=== PATIENT | female | born 1990 | race Caucasian/White ===

== ENCOUNTER 2018-01-31 07:41 | Day surgery (SDC) | payer BC ==
[~2018-01-31 07:41] MED LIST: Sodium Chloride 0.9% 10 ML Syringe FLUSH PRN; Sodium Chloride 0.9% 2.5 ML Syringe FLUSH PRN
--- NOTE | 2018-01-31 08:43 | PCM.PREANE ---
Preanesthetic Assessment - Anesthesia/Transfusion/Family Hx Anesthesia History: Prior Anesthesia Without Reaction Family History of Anesthesia Reaction: No Transfusion History: No Prior Transfusion(s) Intubation History: Unknown - Review of Systems General: No Symptoms Pulmonary: No Symptoms Cardiovascular: No Symptoms Gastrointestinal: No Symptoms Neurological: No Symptoms Other: Reports: None - Physical Assessment O2 Sat by Pulse Oximetry: 98 Respiratory Rate: 16 Vital Signs: Last Vital Signs Temp 36.3 C 01/31/18 08:13 Pulse 88 01/31/18 08:13 Resp 16 01/31/18 08:13 BP 114/72 01/31/18 08:13 Pulse Ox 98 01/31/18 08:13 Height: 1.65 m Weight: 69.853 kg ASA Class: 2 Mental Status: Alert & Oriented x3 Airway Class: Mallampati = 1 Dentition: Reports: Normal Dentition Thyro-Mental Finger Breadths: 3 Mouth Opening Finger Breadths: 3 ROM/Head Extension: Full Lungs: Clear to Auscultation, Normal Respiratory Effort Cardiovascular: Regular Rate, Regular Rhythm - Lab Values: Laboratory Last Values WBC 6.33 K/uL (4.0-11.0) 01/31/18 08:34 RBC 4.36 M/uL (4.30-5.90) 01/31/18 08:34 Hgb 13.7 g/dL (12.0-16.0) 01/31/18 08:34 Hct 40.9 % (36.0-46.0) 01/31/18 08:34 MCV 93.8 fL (80.0-98.0) 01/31/18 08:34 MCH 31.4 pg (27.0-32.0) 01/31/18 08:34 MCHC 33.5 g/dL (31.0-37.0) 01/31/18 08:34 RDW Std Deviation 41.6 fl (28.0-62.0) 01/31/18 08:34 RDW Coeff of Michelle 12 % (11.0-15.0) 01/31/18 08:34 Plt Count 228 K/uL (150-400) 01/31/18 08:34 MPV 9.40 fL (7.40-12.00) 01/31/18 08:34 Nucleated RBC % 0.0 /100WBC 01/31/18 08:34 Nucleated RBCs # 0 K/uL 01/31/18 08:34 - Allergies Allergies/Adverse Reactions: Allergies Allergy/AdvReac Type Severity Reaction Status Date / Time No Known Allergies Allergy Verified 01/27/18 09:02 - Blood Blood Available: No - Anesthesia Plan Pre-Op Medication Ordered: None - Acknowledgements Anesthesia Type Planned: General Anesthesia Pt an Appropriate Candidate for the Planned Anesthesia: Yes Alternatives and Risks of Anesthesia Discussed w Pt/Guardian: Yes Pt/Guardian Understands and Agrees with Anesthesia Plan: Yes PreAnesthesia Questionnaire [employer] History: Reports: Other (See Below) Other OB/BYN History: Abnormal PAP smear Musculoskeletal History: Reports: RA - Past Surgical History Musculoskeletal Surgical History: Reports: Other (See Below) Other Musculoskeletal Surgeries/Procedures:: release of Trigger Finger left hand - SUBSTANCE USE Smoking Status *Q: Never Smoker Recreational Drug Use History: No - HOME MEDS Home Medications: Home Meds Ibuprofen 1 tab PO ASDIRECTED PRN 01/27/18 [History] Norgestimate-Ethinyl Estradiol [Owsley-Linyah 28 Tablet] 1 tab PO DAILY 01/27/18 [ History] sulfaSALAzine [Sulfazine] 2 tab PO ASDIRECTED 01/27/18 [History] - CURRENT (IN HOUSE) MEDS Current Meds: Current Medications Lactated Ringer's (Ringers, Lactated) 1,000 mls @ 125 mls/hr IV ASDIRECTED ESTEFANI Last Admin: 01/31/18 08:21 Dose: 125 mls/hr Sodium Chloride (Saline Flush) 10 ml FLUSH ASDIRECTED PRN PRN Reason: Keep Vein Open Sodium Chloride (Saline Flush) 2.5 ml FLUSH ASDIRECTED PRN PRN Reason: Keep Vein Open Discontinued Medications Lidocaine HCl (Xylocaine-Mpf 1%) Confirm Administered Dose 5 mls @ as directed .ROUTE .STK-MED ONE Stop: 01/31/18 08:04
[2018-01-31] MEDS ORDERED: Lactated Ringers 1,000 ML IV SCH (09:00)
[2018-01-31] MEDS ORDERED: fentaNYL 100 MCG/2 ML SDV ONE (09:03)
[2018-01-31] MEDS ORDERED: Propofol 200 MG/20 ML SDV ONE (09:03)
[2018-01-31] MEDS ORDERED: Midazolam 1 MG/ML 2 ML SDV ONE (09:03)
[2018-01-31] MEDS ORDERED: Lidocaine 1% with EPINEPHrine 1:100,000 20 ML MDV ONE (09:12)
[2018-01-31] MEDS ORDERED: Ketorolac 30 MG/ML SDV ONE (09:53)
--- NOTE | 2018-01-31 10:32 | PCM.OPNOTE ---
- General Post-Op/Procedure Note Date of Surgery/Procedure: 01/31/18 Operative Procedure(s): Loop electrosurgical excision procedure Findings: Ectocervix stained deeply with Lugol idodine. Pre Op Diagnosis: Moderate cervical dysplasia Post-Op Diagnosis: Same Anesthesia Technique: General LMA Primary Surgeon: Rachel Metz EBL in mLs: 3 Complications: None Condition: Good Free Text/Narrative:: Intake & Output 01/30/18 01/31/18 01/31/18 22:59 06:59 14:59 Intake Total 500 Balance 500
--- NOTE | 2018-02-01 08:06 | OR ---
SURGEON: Rachel Metz MD DATE OF PROCEDURE: 01/31/2018 CELLULOSE INSULATION HELPER: Dr. Hatfield. PREOPERATIVE DIAGNOSIS: Cervical dysplasia (MOY I and MOY II). POSTOPERATIVE DIAGNOSIS: Cervical dysplasia (MOY I and MOY II). OPERATIVE PROCEDURE: Cervical loop electrosurgical excision procedure, LEEP. ANESTHESIA: General LMA. ESTIMATED BLOOD LOSS: Minimal. COMPLICATIONS: None. BRIEF HISTORY: Eileen is a 27-year old who has had recurrent abnormal Pap smears. They have alternated between ASCUS and LGSIL. She has had at least 3 colposcopies within the last 3 years and the last colposcopy directed biopsies were consistent with moderate cervical dysplasia. These findings including management options were discussed with her and she accepted to go ahead with an operative procedure in the form of LEEP. The risks of the procedures were explained to her including but not limited to bleeding, infection, inability to excise the lesion completely, which might lead to further excision procedures, injury to adjacent structures. She was also counseled regarding the long-term risk of a possible premature labor/premature rupture of membrane due to cervical insufficiency. Understanding these risks, she accepted to proceed. Appropriate consent was obtained. DESCRIPTION OF PROCEDURE: The patient was taken to the operating room. Induction of general anesthesia was performed without difficulty and after a suitable level of anesthesia, she was placed in dorsal lithotomy position, prepped and draped in usual sterile fashion for vaginal surgery. Examination under anesthesia revealed an anteverted uterus approximately 6 week size. No palpable adnexal masses. No parametrial or paracervical nodularities were palpable. A speculum was then placed into the vagina with good visualization of the cervix achieved. The area of the colposcopy-directed biopsies had healed adequately. The vagina was then cleaned out with normal saline. Paracervical block was performed with 1% lidocaine in 1:100,000 epinephrine dilution. Lugol's iodine was then applied to the cervix and as expected, the ectocervix stained deeply. Thereafter, using a standard loop with loop size of 10 x 12, loop electrosurgical excision was performed. The cervical specimen was removed circumferentially and tagged at 12 o'clock. Hemostasis was achieved with the cautery ball. An ECC was performed with a curette and a Cytobrush was used to obtain a sample. This was also sent off for analysis. The instruments were then removed from the vagina. Instrument, sponge, needle counts were correct at the end of the procedure. The patient was taken to the recovery room in a stable condition. DEENA / GEORGE /[id number] MTDD
== END 2018-01-31 10:47 | disposition home or self-care (01) ==
LOC: MW.SDS 07:41
PROVIDERS: ATTEND Obstetrics & Gynecology
DX: N87.1 Moderate cervical dysplasia (principal)
CPT/HCPCS: 36415; 57522; 81025; 85027; J1885; J2250; J2704; J3010; J7120; 88305; 88307

== ENCOUNTER 2020-11-25 15:18 | Inpatient (IN) | payer BC ==
[2020-11-25] MEDS ORDERED: Lidocaine 1% 50 ML MDV INJECT PRN (15:55)
[2020-11-25] MEDS ORDERED: Sodium Chloride 0.9% 10 ML SDV IV PRN (15:55)
[2020-11-25] MEDS ORDERED: Misoprostol 200 MCG Tab PO PRN (15:55)
[2020-11-25] MEDS ORDERED: Ondansetron 4 MG/2 ML SDV IVPUSH PRN (15:55)
[2020-11-25] MEDS ORDERED: Carboprost Tromethamine 250 MCG/1 ML Amp IM PRN (15:55)
[2020-11-25] MEDS ORDERED: Sodium Chloride 0.9% 2.5 ML Syringe FLUSH PRN (15:55)
[2020-11-25] MEDS ORDERED: Tranexamic Acid 1,000 MG in Sodium Chloride 0.9% 100 ML IV PRN (15:55)
[2020-11-25] MEDS ORDERED: Water For Irrigation,Sterile 1,000 ML Container IRR PRN (15:55)
[2020-11-25] MEDS ORDERED: Sodium Chloride 0.9% 10 ML Syringe FLUSH PRN (15:55)
[2020-11-25] MEDS ORDERED: Methylergonovine 0.2 MG/1 ML Amp IM PRN (15:55)
[2020-11-25] MEDS ORDERED: Butorphanol 1 MG/ML SDV IVPUSH PRN (15:55)
[2020-11-25] MEDS ORDERED: Terbutaline 1 MG/ML SDV SUBCUT PRN (15:58)
[2020-11-25] MEDS ORDERED: Misoprostol 25 MCG (1/4 of 100 MCG) Tab VAG PRN ×2 (15:58)
[2020-11-25] MEDS ORDERED: Oxytocin/0.9 % Sodium Chloride 30 UNIT/500 ML BAG IV SCH ×2 (16:00)
[2020-11-25] MEDS ORDERED: Lactated Ringers 1,000 ML IV SCH (16:00)
[2020-11-26] MEDS: Nalbuphine 10 MG/1 ML Vial IVPUSH PRN ×2 (00:59→02:06)
[2020-11-26] MEDS ORDERED: Docusate Sodium 100 MG Cap PO PRN (03:18)
[2020-11-26] MEDS ORDERED: Lanolin 100% Cream 7 GM Tube TOP PRN (03:18)
[2020-11-26] MEDS ORDERED: Acetaminophen 500 MG Tab PO PRN ×2 (03:18)
[2020-11-26] MEDS ORDERED: Bisacodyl 10 MG Supp RECTAL PRN (03:18)
[2020-11-26] MEDS ORDERED: Benzocaine/Menthol 20%-0.5% Spray 78 GM Cannister TOP PRN (03:18)
[2020-11-26] MEDS ORDERED: oxyCODONE 5 MG Tab PO PRN (03:18)
[2020-11-26] MEDS ORDERED: Witch Hazel Medicated Pads 40/Jar TOP PRN (03:18)
[2020-11-26] MEDS ORDERED: Ibuprofen 800 MG Tab PO PRN (03:18)
[2020-11-26] MEDS ORDERED: Ibuprofen 400 MG Tab PO PRN (03:18)
--- NOTE | 2020-11-26 08:40 | OR ---
SURGEON: Tobi Yadav MD DATE OF PROCEDURE: 11/26/2020 INDICATION FOR PROCEDURE: A 30-year-old G1, P0 at 40 weeks and 4 days presenting with premature rupture of membranes. The patient reports a small gush of clear fluid starting around noon. She waited at home for a few hours without progressing in labor. She was confirmed to be AmniSure positive after arriving to Labor and Delivery. She was 3 cm dilated and was not henna. The patient's was complicated by rheumatoid arthritis, which she received oral steroids during the and symptoms were well controlled. 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 She has a history of cervical dysplasia and had a LEEP previously. She had serial growth ultrasounds which had showed intrauterine growth restriction, but did improve to greater than 10th percentile with the last ultrasound. The patient desired to expectantly manage for the next 3 hours. She did not make further cervical change, and Pitocin was started for augmentation of labor. She tolerated the Pitocin well. The baby was category 1 tracing. She quickly began to cervical change and progressed to fully dilated with the urge to push. PREOPERATIVE DIAGNOSES: 1. Islas intrauterine at 40 weeks and 4 days. 2. Premature rupture of membranes. POSTOPERATIVE DIAGNOSES: 1. Islas intrauterine at 40 weeks and 4 days. 2. Premature rupture of membranes. PROCEDURES PERFORMED: Normal spontaneous vaginal delivery, repair of first-degree lacerations. ANESTHESIA: Local anesthesia. FINDINGS: Viable female , score of 8 and 9. weight of 6lb 8oz. Tight nuchal cord x1. ESTIMATED BLOOD LOSS: 200 mL. DESCRIPTION OF PROCEDURE: The patient pushed with contractions for approximately 20 minutes with good descent. head delivered in occiput anterior position, restituted ROT. A tight nuchal cord was noted. Anterior shoulder delivered easily followed by posterior shoulder and remaining body. The nuchal cord was reduced after delivery. The baby was pink, crying and moving all extremities after delivery. The baby was placed on maternal chest and evaluated by awaiting nursery staff. The umbilical cord was clamped and cut after about 6 minutes per the patient's request. Umbilical cord gases were obtained. The placenta was removed with gentle traction on the umbilical cord. The perineum and vagina were examined and she had a first-degree perineal laceration. 10 mL of 1% lidocaine with epi was used for local anesthesia. The laceration was repaired with 3-0 Vicryl in usual fashion. Hemostasis was confirmed after the repair. Fundal massage was performed. The fundus was firm and at the umbilicus and the bleeding was light. The patient tolerated the procedure well, was given care instructions. ADRIÁN VAZQUEZ /[id number] NADEEM
--- NOTE | 2020-11-26 09:07 | PCM.SN.2 ---
- Free Text/Narrative Note: Patient is requesting to be discharged since baby is having respiratory issues and is being transferred to [place]. She feels well, has been ambulating, tolerating PO. Mild soreness with the vaginal laceration. Bleeding is light. Given precautions to monitor for increased vaginal bleeding, fever or abdominal pain. Reviewed care instructions. Will discharge this home this AM.
== END 2020-11-26 14:20 | disposition home or self-care (01) | DRG 560 ==
LOC: MW.OBCHECK 15:18 → MW.OB 15:18 → MW.OBCHECK 17:00 → MW.OB 17:00 → OBSVTOIN 11-26 02:44 → MW.OB 11-26 05:39
PROVIDERS: ADMIT Obstetrics & Gynecology; ATTEND Obstetrics & Gynecology
PROC: 10E0XZZ Delivery of Products of Conception, External Approach (ICD-10-PCS; principal; 2020-11-26)
PROC: 0HQ9XZZ Repair Perineum Skin, External Approach (ICD-10-PCS; 2020-11-26)
DX: O48.0 Post-term pregnancy (principal); Z3A.40 40 weeks gestation of pregnancy; Z37.0 Single live birth; O42.92 Full-term premature rupture of membranes, unspecified as to length of time between rupture and onset of labor; O70.0 First degree perineal laceration during delivery; Z20.822 Contact with and (suspected) exposure to COVID-19
CPT/HCPCS: 36415; 59025; 59409; 82803; 84112; 85027; 86592; 86850; 86900; 86901; A9270-GY; J2300; J2590; J7120; U0002